=== PATIENT | female | born 1945 | race Caucasian/White ===

== ENCOUNTER 2023-11-11 19:19 | Emergency (ER) | payer MEDICARE, MEDICAID ==
[~2023-11-11] VITALS: Ht 154.9 cm; Wt 45.5 kg
[~2023-11-11 19:19] MED LIST: ALPR-623 PO; AMYL1CAP53 PO; CALC-467 PO; CALC600T35 PO; CHOL20002 PO; COD1CAPS15 PO; CYCL-1 PO; HYDR-4353 PO; LORA-512 PO; MULT-1179 PO; OXYC20TA55 PO
[2023-11-11 19:33] VITALS: BP 150/81; PULSE 92; RESP 16; TEMP 98; O2SAT 99
[2023-11-11 20:25] LABS: BILIRUBIN,URINE NEGATIVE (Neg); CLARITY,URINE CLEAR (Clear); COLOR,URINE YELLOW (Yellow); GLUCOSE, URINE NEGATIVE (Neg); KETONES,URINE NEGATIVE (Neg); LEUKOCYTE ESTERASE ,URINE NEGATIVE (Neg); NITRITES, URINE NEGATIVE (Neg); OCCULT BLOOD,URINE NEGATIVE (Neg); PROTEIN,URINE NEGATIVE (Neg); UROBILINOGEN,URINE 0.2 E.U/dL (0.2-1.0)
[2023-11-11 20:32] LABS: UA COLLECTION TYPE CLN CATCH MIDSTREAM
[2023-11-11 23:26] LABS: HEMOGLOBIN 14.2 g/dl (12.0-16.0); RED CELL DISTRIBUTION WIDTH 13.4 % (11.5-14.5)
[2023-11-11 23:28] LABS: BASOPHILS # (AUTO) 0.1 X10'3 (0-0.2); BASOPHILS % (AUTO) 1.3 % (0-1); EOSINOPHILS % (AUTO) 0.4 % (0-6); HEMATOCRIT 42.3 % (35.0-45.0); LYMPHOCYTES # (AUTO) 1.8 X10'3 (1.1-4.8); LYMPHOCYTES % (AUTO) 34.2 % (21-51); MEAN CORPUSCULAR HEMOGLOBIN 30.6 PG (27.0-31.0); MEAN CORPUSCULAR HGB CONC 33.6 g/dL (33.0-36.5); MEAN CORPUSCULAR VOLUME 91.3 FL (78-98); MEAN PLATELET VOLUME 8.2 FL (7.4-10.4); MONOCYTES # (AUTO) 0.8 X10'3 (0-0.9); MONOCYTES % (AUTO) 15.8 % (2-12); NEUTROPHILS # (AUTO) 2.6 X10'3 (1.8-7.7); NEUTROPHILS % (AUTO) 48.3 % (42-75); PLATELET COUNT 356 X10'3 (140-440); RED BLOOD COUNT 4.63 X10'6 (4.20-5.60); WHITE BLOOD COUNT 5.3 X10'3 (4.5-11.0)
[2023-11-11 23:37] LABS: ALANINE AMINOTRANSFERASE 35 U/L (12-78); ALBUMIN 3.7 G/DL (3.4-5.0); ALKALINE PHOSPHATASE 117 IU/L (46-116); ANION GAP 6 (8-16); ASPARTATE AMINO TRANSFERASE 31 U/L (10-37); BILIRUBIN,TOTAL 0.5 MG/DL (0.1-1.0); BLOOD UREA NITROGEN 10 MG/DL (7-18); BUN/CREATININE RATIO 15.4 (10.0-20.0); CALCIUM 9.1 MG/DL (8.5-10.1); CHLORIDE 96 MMOL/L (99-107); CREATININE 0.65 MG/DL (0.40-0.90); GLUCOSE 107 MG/DL (70-104); MAGNESIUM 1.8 MG/DL (1.5-2.4); POTASSIUM 4.3 MMOL/L (3.5-5.1); SODIUM 133 MMOL/L (135-145); TOTAL PROTEIN 7.3 G/DL (6.4-8.2); eCRCL 50 ML/MIN; eGFR 88 ML/MIN
[2023-11-12 00:36] LABS: PLATELET ESTIMATE NORMAL; TOTAL CELLS COUNTED 100
== END 2023-11-12 01:58 | disposition left against medical advice (07) ==
LOC: ER 19:20
DX: R50.9 Fever, unspecified (principal); Z53.21 Procedure and treatment not carried out due to patient leaving prior to being seen by health care provider
CPT/HCPCS: 36415; 71045; 80053; 81003; 83605; 83735; 84145; 85007; 85025; 87040; 93005; 99281

== ENCOUNTER 2024-07-06 15:49 | Outpatient (CLI) | payer MEDICARE, MEDICAID ==
[~2024-07-06 15:49] MED LIST changes: -COD1CAPS15 PO; +COD1CAPS16 PO
[2024-07-06 16:14] LABS: ABG BASE EXCESS 1.8 mmol/L (-2.0-3.0); ABG HCO3 26.5 mmol/L (21.0-28.0); ABG OXYGEN SATURATION 93.8 % (94.0-98.0); ABG PCO2 (T) 42.1 mmHg (32.0-45.0); ABG PH (T) 7.417 (7.350-7.450); ABG PO2 (T) 81.9 mmHg (83.0-108.0); ALLEN'S TEST POSITIVE; FCOHb 2.2 % (0.5-1.5); FHHb 6.1 % (0.0-5.0); FMetHb 0.1 % (0.0-1.5); FO2Hb 91.6 % (94.0-98.0); MODE ROOM AIR; TOTAL HEMOGLOBIN 12.8 G/dl (12.0-16.0)
[2024-07-06 17:18] VITALS: PULSE 91; RESP 16; O2SAT 96
== END 2024-07-06 23:59 | disposition home or self-care (01) ==
LOC: RT 15:49
PROVIDERS: ATTEND Student in an Organized Health Care Education/Training Program
DX: R06.02 Shortness of breath (principal)
CPT/HCPCS: 36600; 82803; 85018; 94010; 94727; 94729; 94760

== ENCOUNTER 2024-09-28 11:38 | Day surgery (SDC) | payer MEDICARE, MEDICAID ==
[~2024-09-28] VITALS: Ht 154.9 cm; Wt 46.8 kg
[~2024-09-28 11:38] MED LIST changes: -ALPR-623 PO; -OXYC20TA55 PO; +TEMAZEPAM PO
[2024-09-28 12:53] VITALS: BP 155/72; PULSE 81; RESP 16
[2024-09-28] MEDS ORDERED: simethicone 40mg/0.6ml oral drops 30ml ONE (13:56)
[2024-09-28 14:12] VITALS: BP 132/67; PULSE 70; RESP 12; O2SAT 100
[2024-09-28 14:15] VITALS: BP 129/75; PULSE 69; RESP 12; O2SAT 99
[2024-09-28 14:25] VITALS: BP 136/73; PULSE 66; RESP 18; O2SAT 96
[2024-09-28 14:35] VITALS: BP 139/71; PULSE 65; RESP 18; O2SAT 98
[2024-09-28] MEDS ORDERED: ondansetron/PF 4mg/2ml inj IV PRN (14:40)
[2024-09-28] MEDS ORDERED: ringers solution, lacted 1,000 ML IV SCH (14:40)
[2024-09-28 14:45] VITALS: BP 130/75; PULSE 66; RESP 12; O2SAT 98
== END 2024-09-28 14:50 | disposition home or self-care (01) ==
LOC: GI LAB 11:38
PROVIDERS: ATTEND Internal Medicine Gastroenterology
DX: K31.89 Other diseases of stomach and duodenum (principal); K30 Functional dyspepsia; Z98.890 Other specified postprocedural states; Z90.710 Acquired absence of both cervix and uterus
CPT/HCPCS: 43239; A4620; J2405; J2704; J7030; J7120; Z7512; 88305